=== PATIENT | male | born 1950 | race Caucasian/White ===

== ENCOUNTER 2016-12-07 05:26 | Day surgery (SDC) | payer MEDICARE, OTHER ==
--- NOTE | ~2016-12-07 | EGD ---
EGD REPORT [facility] [address] [address] NAME: RODRIGUE PRICE : [birth year] STATUS : REG [facility] [place] PAT#: [id number] AGE: 66 ADM/REG DATE : 12/07/16 MR#: [id number] REPORT SERV DATE: 12/07/16 DICTATED BY: LEANDER DOTSON DATE: 12/07/16 REPORT STATUS : Draft TRANSCRIBED BY: [facility] DATE: 12/07/16 Endoscopy Center Patient Name: Rodrigue Price Date of : 1950 Attending MD: MATT DOTSON MD Procedure Date No Time: 12/07/2016 Procedure: Upper GI endoscopy Indications: Dysphagia Medicines: See the Anesthesia note for documentation of the administered medications Complications: No immediate complications. Estimated blood loss: Minimal. Procedure: Pre-Anesthesia Assessment: - ASA Grade Assessment: III - A patient with severe systemic disease. After obtaining informed consent, the endoscope was passed under direct vision. Throughout the procedure, the patient's blood pressure, pulse, and oxygen saturations were monitored continuously. The GIF [id number] was introduced through the mouth, and advanced to the second part of duodenum. The upper GI endoscopy was accomplished without difficulty. The patient tolerated the procedure well. Findings: The examined duodenum was normal. The entire examined stomach was normal. PEG balloon seen A benign-appearing, intrinsic moderate stenosis was found at the cricopharyngeus and was traversed. A guidewire was placed and the scope was withdrawn. Dilation was performed with a Savary dilator with mild resistance at 42 Fr and moderate resistance at 45 Fr. Estimated blood loss was minimal. Impression: - Normal examined duodenum. - Normal stomach. PEG balloon seen - Benign-appearing esophageal stricture. Dilated. Recommendation: - Patient has a contact number available for emergencies. The signs and symptoms of potential delayed complications were discussed with the patient. Return to normal activities tomorrow. Written discharge instructions were provided to the patient. - Clear liquid diet today and if no trouble, soft diet EGD REPORT [address] [address] NAME: RODRIGUE PRICE : [birth year] STATUS : REG [facility]#: [id number] AGE: 66 ADM/REG DATE : 12/07/16 MR#: [id number] REPORT SERV DATE: 12/07/16 DICTATED BY: LEANDER DOTSON DATE: 12/07/16 REPORT STATUS : Draft TRANSCRIBED BY: [employer] DATE: 12/07/16 tomorrow and if no trouble regular diet day after tomorrow. - Continue present medications. - Repeat the upper endoscopy in 1 month for retreatment. Procedure Code(s): --- Professional --- 39049, Esophagogastroduodenoscopy, flexible, transoral; with insertion of guide wire followed by passage of dilator(s) through esophagus over guide wire Diagnosis Code(s): --- Professional --- K22.2, Esophageal obstruction R13.10, Dysphagia, unspecified CPT copyright 2013 [employer]. All rights reserved. The codes documented in this report are preliminary and upon medical insurance coder review may be revised to meet current compliance requirements. MATT DOTSON MD 12/07/2016 7:18 AM This report has been signed electronically. Number of Addenda: 0 Note Initiated On: 12/07/2016 7:05 AM Scope Withdrawal Time 0 hours 0 minutes 0 seconds [address] [place] [address] [place] [id number]
[~2016-12-07 05:26] MED LIST: ALBUTEROL0.083 % INH; AT10 PEG; BUSPAR5 PEG; COSOPT OPH; FLEX PEG; FLEX PO; FLOMAX4 PO; HYDROCHLOROT25 MG PO; NORCO1 TA2 PEG; NORCO1 TA2 PO; PRIN10 PO; PROSCAR5 PEG; REMERON45 MG PEG; SILVADENE TD; SYN88 PEG; SYNTHROID; TRUSOPT2 % OPH; VENTOLIN HFA INH; XALAT OPH
== END 2016-12-07 23:59 | disposition home or self-care (01) ==
LOC: DMU 05:26
PROVIDERS: Internal Medicine Gastroenterology
PROC: 0D758ZZ Dilation of Esophagus, Via Natural or Artificial Opening Endoscopic (ICD-10-PCS; principal; 2016-12-07 07:00)
DX: K22.2 Esophageal obstruction (principal); I10 Essential (primary) hypertension; M10.9 Gout, unspecified; F41.9 Anxiety disorder, unspecified; F32.9 Major depressive disorder, single episode, unspecified; F43.10 Post-traumatic stress disorder, unspecified; E03.9 Hypothyroidism, unspecified; Z90.5 Acquired absence of kidney; Z98.890 Other specified postprocedural states